=== PATIENT | female | born 1955 | race Asian ===

== ENCOUNTER 2017-05-24 15:38 | Outpatient (CLI) | payer OTHER ==
--- NOTE | 2017-05-27 15:21 | Mammography Report ---
DIGITAL SCREENING MAMMOGRAM: 05/24/2017 CLINICAL INDICATION: A 62-year-old, for screening. COMPARISON: 12/2015, 02/2014, 01/2013, 11/2011, 10/2010, 10/2009. TECHNIQUE: Routine CC and MLO projections were obtained of the breasts. Bilateral laterally exaggera moody craniocaudal views. FINDINGS: Parenchymal tissue within both breasts is heterogeneously dense, which may lower the sensi tivity of mammography; however, there are no dominant masses, suspicious microcalcifications, or seco ndary signs of malignancy. In comparison to the previous studies, there are no significant changes. ASSESSMENT: NO MAMMOGRAPHIC EVIDENCE OF MALIGNANCY. NO SIGNIFICANT INTERVAL CHANGES. RECOMMENDATION: Screening mammography is recommended annually. BIRADS category 1 - negative. STANDARD QUALIFYING STATEMENTS 1. This examination was reviewed with the aid of Computed-Aided Detection (CAD). 2. A negative or benign imaging report should not delay biopsy if clinically suspicious findings are present. Consider surgical consultation if warranted. More than 5% of cancers are not identified by i maging. 3. Dense breasts may obscure an underlying neoplasm. JOB #: [id number] EXT JOB #:[id number]
== END 2017-05-24 15:39 | disposition home or self-care (01) ==
LOC: DI 15:38
PROVIDERS: ATTEND Family Medicine
DX: Z12.31 Encounter for screening mammogram for malignant neoplasm of breast (principal)
CPT/HCPCS: 77067

== ENCOUNTER 2017-06-03 14:30 | Outpatient (CLI) | payer OTHER | END 2017-06-03 14:31 | disposition home or self-care (01) | LOC: LAB.R 14:30 | PROVIDERS: ATTEND Family Medicine | DX: N39.0 Urinary tract infection, site not specified (principal) | CPT/HCPCS: 87086 ==

== ENCOUNTER 2017-10-09 21:45 | Emergency (ER) | payer OTHER ==
[2017-10-09 21:59] VITALS: BP 142/86
[2017-10-09] MEDS ORDERED: IBUPROFEN 600 MG TABLET PO STA (22:13)
--- NOTE | 2017-10-09 22:19 | ED Physician Documentation ---
PD HPI UPPER EXT INJURY - Stated complaint Stated Complaint: RT WRIST PX - Chief complaint Chief Complaint: Ext Problem - History obtained from History obtained from: Patient - History of Present Illness Location: Other (She was at work tonight and was putting a liner on a garbage can it was quite tight and she bends her wrist. 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 : None HEENT: None Psych: None Musculoskeletal: None Derm: None - Past Surgical History Past Surgical History: No - Present Medications Home Medications: Ambulatory Orders Medication Instructions Recorded Confirmed Ibuprofen [Motrin] 800 mg PO Q8H PRN #30 tablet 10/09/17 - Allergies Allergies/Adverse Reactions: Allergies Allergy/AdvReac Type Severity Reaction Status Date / Time No Known Drug Allergies Allergy Verified 10/09/17 22:12 - Social History Does the pt smoke?: No Smoking Status: Never smoker Does the pt drink ETOH?: No Does the pt have substance abuse?: No - Immunizations Immunizations are current?: Yes - POLST Patient has POLST: No PD ED PE NORMAL - Vitals Vital signs reviewed: Yes - General General: Alert and oriented X 3, No acute distress - Extremities Extremities: Other (Right wrist is nontender with full range of motion, but she does have pain with both extension and ulnar deviation.) - Neuro Neuro: Alert and oriented X 3, Normal speech Results - Vitals Vitals: Vital Signs - 24 hr 10/09/17 21:53 Temperature 36.8 C Heart Rate 65 Respiratory 20 Rate Blood Pressure 142/86 H O2 Saturation 98 Oxygen O2 Source Room air Departure - Departure Disposition: Home, Self Care Clinical Impression: Sprain of wrist, right Qualifiers: Encounter type: initial encounter Qualified Code(s): S63.501A - Unspecified sprain of right wrist, initial encounter Condition: Good Record reviewed to determine appropriate education?: Yes Instructions: ED Sprain Wrist Prescriptions: Ibuprofen [Motrin] 800 mg PO Q8H PRN #30 tablet PRN Reason: PAIN &/OR FEVER Comments: Recheck with your doctor in 1 week. Forms: Activity restrictions
--- NOTE | 2017-10-09 23:24 | ED Physician Documentation ---
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 : None HEENT: None Psych: None Musculoskeletal: None Derm: None - Past Surgical History Past Surgical History: No - Present Medications Home Medications: Ambulatory Orders Medication Instructions Recorded Confirmed Ibuprofen [Motrin] 800 mg PO Q8H PRN #30 tablet 10/09/17 - Allergies Allergies/Adverse Reactions: Allergies Allergy/AdvReac Type Severity Reaction Status Date / Time No Known Drug Allergies Allergy Verified 10/09/17 22:12 - Social History Does the pt smoke?: No Smoking Status: Never smoker Does the pt drink ETOH?: No Does the pt have substance abuse?: No - Immunizations Immunizations are current?: Yes - POLST Patient has POLST: No Results - Vitals Vitals: Vital Signs - 24 hr 10/09/17 21:53 Temperature 36.8 C Heart Rate 65 Respiratory 20 Rate Blood Pressure 142/86 H O2 Saturation 98 Oxygen O2 Source Room air Departure - Departure Disposition: 01 Home, Self Care Clinical Impression: Sprain of wrist, right Qualifiers: Encounter type: initial encounter Qualified Code(s): S63.501A - Unspecified sprain of right wrist, initial encounter Condition: Good Instructions: ED Sprain Wrist Prescriptions: Ibuprofen [Motrin] 800 mg PO Q8H PRN #30 tablet PRN Reason: PAIN &/OR FEVER Comments: Recheck with your doctor in 1 week. Forms: Activity restrictions Discharge Date/Time: 10/09/17 22:31
== END 2017-10-09 22:31 | disposition home or self-care (01) ==
LOC: ED 21:45
DX: S63.501A Unspecified sprain of right wrist, initial encounter (principal); X50.1XXA Overexertion from prolonged static or awkward postures, initial encounter; Y93.E9 Activity, other interior property and clothing maintenance; Y92.89 Other specified places as the place of occurrence of the external cause; Y99.0 Civilian activity done for income or pay; I10 Essential (primary) hypertension; K21.9 Gastro-esophageal reflux disease without esophagitis
CPT/HCPCS: 99283; A9270

== ENCOUNTER 2018-06-21 13:50 | Emergency (ER) | payer OTHER ==
[2018-06-21 13:56] VITALS: BP 162/97
[2018-06-21] MEDS ORDERED: IBUPROFEN 600 MG TABLET PO STA (14:04)
--- NOTE | 2018-06-21 14:07 | ED Physician Documentation ---
PD HPI UPPER EXT INJURY - Stated complaint Stated Complaint: RT ARM INJ - Chief complaint Chief Complaint: Ext Problem - History obtained from History obtained from: Patient - History of Present Illness Location: Right (She has had problems with the left shoulder before, but never the right. Last night she was picking up a bag with a salmon in it at home. And she felt a pull in the right shoulder and has persistent pain that is only bad especially if she moves the arm. Rest it is not too bad. 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 : None HEENT: None Psych: None Musculoskeletal: None Derm: None - Past Surgical History Past Surgical History: No - Present Medications Home Medications: Ambulatory Orders Medication Instructions Recorded Confirmed Ibuprofen [Motrin] 800 mg PO Q8H PRN #30 tablet 10/09/17 Ibuprofen 600 mg PO Q8HR PRN #15 tablet 06/21/18 - Allergies Allergies/Adverse Reactions: Allergies Allergy/AdvReac Type Severity Reaction Status Date / Time No Known Drug Allergies Allergy Verified 06/21/18 13:56 - Social History Does the pt smoke?: No Smoking Status: Never smoker Does the pt drink ETOH?: No Does the pt have substance abuse?: No - Immunizations Immunizations are current?: Yes - POLST Patient has POLST: No PD ED PE NORMAL - Vitals Vital signs reviewed: Yes - General General: Alert and oriented X 3, No acute distress - Extremities Extremities: Other (Right shoulder is nontender, she has decent range of motion with abduction and abduction as well as internal and external rotation. Flexion of the shoulder hurts her though. There is no deformity. The clavicle and upper shoulder are nontender.) Results - Vitals Vitals: Vital Signs - 24 hr 06/21/18 13:53 Temperature 36.0 C L Heart Rate 73 Respiratory 16 Rate Blood Pressure 162/97 H O2 Saturation 100 Oxygen O2 Source Room air PD MEDICAL DECISION MAKING - ED course ED course: Seems like a simple shoulder strain, no evidence of rotator cuff pathology or bony pathology on exam and I do not think x-rays are necessary at this juncture. She is given a Note for a few days off of work and anti- inflammatories. - Sepsis Event Vital Signs: Vital Signs - 24 hr 06/21/18 13:53 Temperature 36.0 C L Heart Rate 73 Respiratory 16 Rate Blood Pressure 162/97 H O2 Saturation 100 Oxygen O2 Source Room air Departure - Departure Disposition: Home, Self Care Clinical Impression: Right shoulder strain Qualifiers: Encounter type: initial encounter Qualified Code(s): S46.911A - Strain of unspecified muscle, fascia and tendon at shoulder and upper arm level, right arm , initial encounter Condition: Good Record reviewed to determine appropriate education?: Yes Instructions: ED Sprain Shoulder Prescriptions: Ibuprofen 600 mg PO Q8HR PRN #15 tablet PRN Reason: Pain Comments: Your blood pressure was elevated today on check into the emergency department. This does not mean that you have hypertension, it is a common phenomenon to come to the emergency department and have elevated blood pressure. I recommend that you see your primary care physician within the week to have it rechecked when you are feeling better. Forms: Activity restrictions
== END 2018-06-21 14:30 | disposition home or self-care (01) ==
LOC: ED 13:50
DX: I10 Essential (primary) hypertension (principal); S46.911A Strain of unspecified muscle, fascia and tendon at shoulder and upper arm level, right arm, initial encounter; X50.0XXA Overexertion from strenuous movement or load, initial encounter; X50.9XXA Other and unspecified overexertion or strenuous movements or postures, initial encounter; Y93.89 Activity, other specified; Y92.009 Unspecified place in unspecified non-institutional (private) residence as the place of occurrence of the external cause
CPT/HCPCS: 99282; 99283; A9270

== ENCOUNTER 2018-07-25 14:12 | Outpatient (CLI) | payer OTHER ==
--- NOTE | 2018-07-28 09:04 | Mammography Report ---
Reason: SCREENING MAMMO Procedure Date: 07/25/2018 Accession Number: [id number] / [id number] Procedure: NELLIE - Screening Mammo w/Daniel CPT Code: FULL RESULT: EXAM: Screening Mammo w/Daniel DATE: 07/25/2018 2:39 PM CLINICAL HISTORY: 63-year-old female for screening mammogram. TECHNIQUE: Bilateral CC and MLO views were obtained. COMPARISON: 05/24/2017, 01/06/2016, 02/26/2014, 01/28/2013. FINDINGS: The breasts demonstrate heterogeneously dense fibroglandular parenchyma bilaterally. No suspicious masses, clustered microcalcifications, or regions of architectural distortion are identified. IMPRESSION: Negative examination RECOMMENDATION: Routine annual screening unless otherwise clinically indicated. BIRADS CATEGORY 1: Negative STANDARD QUALIFYING STATEMENTS: 1. This examination was not reviewed with the aid of Computer-Aided Detection (CAD). 2. A negative or benign imaging report should not delay biopsy if clinically suspicious findings are present. Consider surgical consultation if warrented. More than 5% of cancers are not identified by imaging. 3. Dense breasts may obscure an underlying neoplasm. 4. This examination was reviewed with the aid of 3D breast imaging (tomosynthesis).
== END 2018-07-25 14:13 | disposition home or self-care (01) ==
LOC: DI 14:12
DX: Z12.31 Encounter for screening mammogram for malignant neoplasm of breast (principal)
CPT/HCPCS: 77063; 77067

== ENCOUNTER 2018-08-01 08:00 | Outpatient (CLI) | payer OTHER | END 2018-08-01 08:01 | disposition home or self-care (01) | LOC: LAB.R 08:00 | PROVIDERS: ATTEND Family Medicine | DX: R30.0 Dysuria (principal); R50.9 Fever, unspecified | CPT/HCPCS: 87086; 87181; 87275; 87276 ==

== ENCOUNTER 2018-08-21 15:00 | Outpatient (CLI) | payer OTHER ==
[2018-08-23 11:32] LABS: HSV 2 IGG TYPE SPECIFIC AB <0.90 index
== END 2018-08-21 15:01 | disposition home or self-care (01) ==
LOC: LAB 15:00
PROVIDERS: ATTEND Obstetrics & Gynecology
DX: Z11.3 Encounter for screening for infections with a predominantly sexual mode of transmission (principal)
CPT/HCPCS: 36415; 81599; 86695; 86696

== ENCOUNTER 2019-11-12 08:00 | Outpatient (CLI) | payer BC, OTHER | END 2019-11-12 23:59 | disposition home or self-care (01) | LOC: LAB.R 08:00 | PROVIDERS: ATTEND Family Medicine | DX: R30.0 Dysuria (principal) | CPT/HCPCS: 87086 ==

== ENCOUNTER 2019-11-28 17:38 | Emergency (ER) | payer BC ==
[2019-11-28 17:48] VITALS: BP 160/94
[2019-11-28] MEDS ORDERED: IBUPROFEN 800 MG TABLET PO STA (17:55)
--- NOTE | 2019-11-28 17:56 | ED Physician Documentation ---
PD HPI CHEST PAIN - Stated complaint Stated Complaint: MUSCULAR PX - Chief complaint Chief Complaint: Back Pain - History obtained from History obtained from: Patient - History of Present Illness Timing - onset: Other (Healthy 64-year-old woman has had left upper chest pain ever since someone cracked her back a week ago. It is worse when she bends over, coughs, or takes a deep breath or laughs. It is not present at rest. 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 HEENT: None Psych: None Musculoskeletal: None Derm: None - Past Surgical History Past Surgical History: No - Present Medications Home Medications: Ambulatory Orders Medication Instructions Recorded Confirmed Ibuprofen [Motrin] 800 mg PO Q8H PRN #30 tablet 10/09/17 Ibuprofen 600 mg PO Q8HR PRN #15 tablet 06/21/18 Cyclobenzaprine [Flexeril] 10 mg PO TID PRN #14 tablet 11/28/19 - Allergies Allergies/Adverse Reactions: Allergies Allergy/AdvReac Type Severity Reaction Status Date / Time No Known Drug Allergies Allergy Verified 06/21/18 13:56 - Social History Does the pt smoke?: No Smoking Status: Never smoker Does the pt drink ETOH?: No Does the pt have substance abuse?: No - Immunizations Immunizations are current?: Yes - POLST Patient has POLST: No PD ED PE NORMAL - Vitals Vital signs reviewed: Yes - General General: Alert and oriented X 3, No acute distress - HEENT HEENT: PERRL, EOMI - Neck Neck: Supple, no meningeal sign, No bony TTP - Cardiac Cardiac: RRR, No murmur - Respiratory Respiratory: No respiratory distress, Other (Tender left upper chest wall, no shingles rash.) - Abdomen Abdomen: Non tender - Extremities Extremities: No edema, No calf tenderness / cord - Neuro Neuro: Alert and oriented X 3, Normal speech Results - Vitals Vitals: Vital Signs - 24 hr 11/28/19 17:42 Temperature 36 C L Heart Rate 70 Respiratory 18 Rate Blood Pressure 160/94 H O2 Saturation 96 Oxygen O2 Source Room air - EKG (time done) 4521 Rate: Rate (enter#) (64) Rhythm: NSR Roff: Normal Intervals: Normal OK QRS: Normal Ischemia: Normal ST segments Computer interpretation: Agree with computer - Rads (name of study) 2v chest Radiology: EMP read contemporaneously (normal) PD MEDICAL DECISION MAKING - ED course ED course: 64-year-old woman with reproducible traumatic muscular pain of the left upper chest. Given her age although the history was very atypical and EKG was done without any ischemic findings and a chest x-ray was normal. Departure - Departure Disposition: 01 Home, Self Care Clinical Impression: Chest wall muscle strain Qualifiers: Encounter type: initial encounter Qualified Code(s): S29.011A - Strain of muscle and tendon of front wall of thorax, initial encounter Condition: Good Record reviewed to determine appropriate education?: Yes Instructions: ED Contusion Chest Wall Prescriptions: Cyclobenzaprine [Flexeril] 10 mg PO TID PRN #14 tablet PRN Reason: Spasms Comments: You can continue ibuprofen as needed for pain. Return for new or worsening symptoms. Follow-up with your doctor within the week. Your blood pressure was elevated today on check into the emergency department. This does not mean that you have hypertension, it is a common phenomenon to come to the emergency department and have elevated blood pressure. I recommend that you see your primary care physician within the week to have it rechecked when you are feeling better.
--- NOTE | 2019-11-28 18:56 | XRAY Report ---
Reason: chest pain Procedure Date: 11/28/2019 Accession Number: [id number] / [id number] Procedure: XR - Chest 2 View X-Ray CPT Code: 29791 Final Report FULL RESULT: EXAM: CHEST RADIOGRAPHY EXAM DATE: 11/28/2019 06:41 PM. CLINICAL HISTORY: Chest pain. COMPARISON: CHEST 1 VIEW 01/13/2015 2:18 PM. TECHNIQUE: 2 views. FINDINGS: Lungs/Pleura: No focal opacities evident. No pleural effusion. No pneumothorax. Normal volumes. Mediastinum: Heart and mediastinal contours are unremarkable. Other: None. IMPRESSION: Normal 2-view chest radiography. RADIA
== END 2019-11-28 19:12 | disposition home or self-care (01) ==
LOC: ED 17:38
DX: S29.011A Strain of muscle and tendon of front wall of thorax, initial encounter (principal); X58.XXXA Exposure to other specified factors, initial encounter; Y93.89 Activity, other specified; I10 Essential (primary) hypertension
CPT/HCPCS: 71046; 93005; 99283; 99284; A9270

== ENCOUNTER 2020-12-22 08:00 | Outpatient (CLI) | payer OTHER ==
[2020-12-22 17:56] LABS: BASOPHILS # (AUTO) 0.1 10^3/uL (0.0-0.1); EOSINOPHILS # (AUTO) 0.2 10^3/uL (0.0-0.7); EOSINOPHILS % (AUTO) 3.6 %; HGB - HEMOGLOBIN 12.2 g/dL (12.0-16.0); LYMPHOCYTES # (AUTO) 2.4 10^3/uL (1.5-3.5); LYMPHOCYTES % (AUTO) 46.2 %; MEAN CORPUSCULAR HEMOGLOBIN 31.4 pg (27.0-31.0); MEAN CORPUSCULAR HGB CONC 32.1 g/dL (32.0-36.0); MEAN CORPUSCULAR VOLUME 97.9 fL (81.0-99.0); MEAN PLATELET VOLUME 9.9 fL (7.9-10.8); MONOCYTES # (AUTO) 0.4 10^3/uL (0.0-1.0); MONOCYTES % (AUTO) 8.4 %; NEUTROPHILS # (AUTO) 2.1 10^3/uL (1.5-6.6); NEUTROPHILS % (AUTO) 40.6 %; PLT - PLATELET COUNT 275 10^3/uL (130-450); RED BLOOD COUNT 3.88 10^6/uL (4.20-5.40); WHITE BLOOD COUNT 5.2 x10^3/uL (4.8-10.8)
[2020-12-22 19:05] LABS: ALBUMIN 4.3 g/dL (3.2-5.5); ALBUMIN/GLOBULIN RATIO 1.3 (1.0-2.2); BILIRUBIN,TOTAL 0.6 mg/dL (0.2-1.0); CALCIUM 9.1 mg/dL (8.5-10.3); CREATININE 0.7 mg/dL (0.4-1.0); TOTAL PROTEIN 7.7 g/dL (6.7-8.2)
== END 2020-12-22 23:59 | disposition home or self-care (01) ==
LOC: LAB.WCP 08:00
PROVIDERS: ATTEND Family Medicine
DX: R42 Dizziness and giddiness (principal)
CPT/HCPCS: 36415; 80053; 85025

== ENCOUNTER 2021-01-23 15:45 | Outpatient (CLI) | payer OTHER ==
--- NOTE | 2021-01-24 08:11 | Mammography Report ---
BILATERAL DIGITAL SCREENING MAMMOGRAM 3D/2D: 01/23/2021 CLINICAL: Routine screening. Comparison is made to exams dated: 07/25/2018 mammogram, 05/24/2017 mammogram, 01/06/2016 mammogram, 02/26 mammogram, 01/28/2013 mammogram, and 12/18/2011 mammogram - [facility]. The ti ssue of both breasts is heterogeneously dense. This may lower the sensitivity of mammography. No significant masses, calcifications, or other findings are seen in either breast. There has been no significant interval change. IMPRESSION: NEGATIVE There is no mammographic evidence of malignancy. A 1 year screening mammogram is recommended. This exam was interpreted at Station ID: [id number]. NOTE: For mammograms, a report in lay terms will be sent to the patient. Approximately 15% of breast malignancies will not be visualized mammographically. In the management of a palpable breast mass, a negative mammogram must not discourage biopsy of a clinically suspicious lesion. Electronically Signed By: Joe Sawant M.D. at/sue:01/23/2021 16:35:25 ACR BI-RADS Category 1: Negative 3341F PARENCHYMAL PATTERN: (D) - The breast(s) demonstrate(s) heterogeneously dense fibroglandular huma melvin. BI-RADS CATEGORY: (1) - 1 RECOMMENDATION: (ANNUAL) - Recommend routine annual screening mammography. [id number] 1 year screening LATERALITY: (B)
== END 2021-01-23 15:46 | disposition home or self-care (01) ==
LOC: DI.N 15:45
PROVIDERS: ATTEND Obstetrics & Gynecology
DX: Z12.31 Encounter for screening mammogram for malignant neoplasm of breast (principal)

== ENCOUNTER 2021-06-29 11:00 | Outpatient (CLI) | payer OTHER | END 2021-06-29 23:59 | disposition home or self-care (01) | LOC: LAB.N 11:00 | PROVIDERS: ATTEND Nurse Practitioner | DX: R30.0 Dysuria (principal) | CPT/HCPCS: 87086 ==

== ENCOUNTER 2022-05-02 08:33 | Outpatient (CLI) | payer OTHER ==
--- NOTE | 2022-05-03 12:28 | Mammography Report ---
BILATERAL DIGITAL SCREENING MAMMOGRAM 3D/2D: 05/02/2022 CLINICAL: Routine screening. Comparison is made to exams dated: 01/23/2021 mammogram, 07/25/2018 mammogram, 05/24/2017 mammogram, 01/05 mammogram, 02/26/2014 mammogram, and 01/28/2013 mammogram - [facility]. The tis ciaran of both breasts is heterogeneously dense. This may lower the sensitivity of mammography. No significant masses, calcifications, or other findings are seen in either breast. There has been no significant interval change. IMPRESSION: NEGATIVE There is no mammographic evidence of malignancy. A 1 year screening mammogram is recommended. Based on the Tyrer Cuzick model (a risk assessment model) the patients lifetime risk is 7.7% and her 10 year risk is 3.7%. According to the ACR, ACS, and NCCN guidelines, an annual breast MRI exam saul g with mammogram is recommended if the patients lifetime risk is 20% or greater. This exam was interpreted at Station ID: [id number]. NOTE: For mammograms, a report in lay terms will be sent to the patient. Approximately 15% of breast malignancies will not be visualized mammographically. In the management of a palpable breast mass, a negative mammogram must not discourage biopsy of a clinically suspicious lesion. Electronically Signed By: Joe dove/sue:05/02/2022 10:47:48 ACR BI-RADS Category 1: Negative 3341F PARENCHYMAL PATTERN: (D) - The breast(s) demonstrate(s) heterogeneously dense fibroglandular huma melvin. BI-RADS CATEGORY: (1) - 1 RECOMMENDATION: (ANNUAL) - Recommend routine annual screening mammography. [id number] 1 year screening LATERALITY: (B)
== END 2022-05-02 08:34 | disposition home or self-care (01) ==
LOC: DI.N 08:33
PROVIDERS: ATTEND Obstetrics & Gynecology
DX: Z12.31 Encounter for screening mammogram for malignant neoplasm of breast (principal)

== ENCOUNTER 2022-08-13 08:00 | Outpatient (CLI) | payer MEDICARE | END 2022-08-13 23:59 | disposition home or self-care (01) | LOC: LAB.N 08:00 | PROVIDERS: ATTEND Registered Nurse | DX: R30.0 Dysuria (principal) | CPT/HCPCS: 87086; 87181 ==

== ENCOUNTER 2022-08-22 07:31 | Outpatient (CLI) | payer MEDICARE ==
--- NOTE | 2022-08-22 09:57 | DEXA Report ---
PROCEDURE: Dexa Spine and/or Hip INDICATIONS: OSTEOPOROSIS TECHNIQUE: Dual energy x-ray absorptiometry (DXA) was performed on a [employer] System. Regions measur ed are the AP Spine, femoral neck, and if needed forearm. COMPARISON: 04/25/2016 FINDINGS: Lumbar Spine: Bone Mineral Density 0.81 g/cm/cm,T score -3.1, previously -2.6 Left Hip: Bone Mineral Density 0.74 g/cm/cm,T score -2.1, previously -1.7 Left Femoral Neck: Bone Mineral Density 0.70 g/cm/cm, T score -2.4, previously -2 (T score greater or equal to -1.0: NORMAL) (T score from -1.1 to -2.4: OSTEOPENIA) (T score less than or equal to -2.5 to: OSTEOPOROSIS) Impression: Osteoporosis of the lumbar spine. Osteopenia of the left hip and femoral neck. T-scores are slightly worsened compared to 2016. Patients with diagnosis of osteoporosis or osteopenia should have regular bone mineral density assess ment. For those eligible for Medicare, routine testing is allowed once every 2 years. Testing frequ ency can be increased for patients who have rapidly progressing disease or for those who are receivin g medical therapy to restore bone mass. Reviewed by: Danilo Mckeon MD on 08/22/2022 9:56 AM PDT Approved by: Danilo Mckeon MD on 08/22/2022 9:56 AM PDT Station ID: [id number]
== END 2022-08-22 07:32 | disposition home or self-care (01) ==
LOC: DI 07:31
PROVIDERS: ATTEND Nurse Practitioner
DX: M81.0 Age-related osteoporosis without current pathological fracture (principal)

== ENCOUNTER 2023-05-27 16:27 | Outpatient (CLI) | payer MEDICARE ==
--- NOTE | 2023-05-28 20:18 | XRAY Report ---
PROCEDURE: Chest 2 View X-Ray INDICATIONS: COUGH, UNSPECIFIED TECHNIQUE: 2 views of the chest were acquired. COMPARISON: 11/28/2019. FINDINGS: Surgical changes and devices: None. Lungs and pleura: No pleural effusions or pneumothorax. Lungs are clear. Mediastinum: Mediastinal contours appear normal. Heart size is normal. Bones and chest wall: No suspicious bony lesions. Overlying soft tissues appear unremarkable. IMPRESSION: No acute cardiopulmonary process. Reviewed by: Phil Artis MD on 05/28/2023 8:16 PM PDT Approved by: Phil Artis MD on 05/28/2023 8:16 PM PDT Station ID: [id number]
== END 2023-05-27 16:28 | disposition home or self-care (01) ==
LOC: DI 16:27
PROVIDERS: ATTEND Nurse Practitioner
DX: R05.9 Cough, unspecified (principal)

== ENCOUNTER 2023-07-30 15:20 | Outpatient (CLI) | payer MEDICARE ==
--- NOTE | 2023-07-31 10:43 | Mammography Report ---
BILATERAL DIGITAL SCREENING MAMMOGRAM 3D/2D: 07/30/2023 CLINICAL: Routine screening. Comparison is made to exams dated: 05/02/2022 mammogram, 01/23/2021 mammogram, 07/25/2018 mammogram, 05/24 mammogram, 01/06/2016 mammogram, and 02/26/2014 mammogram - [facility]. There are scattered areas of fibroglandular density in both breasts (category b / 25%-50% glandular t issue). No significant masses, calcifications, or other findings are seen in either breast. There has been no significant interval change. IMPRESSION: NEGATIVE There is no mammographic evidence of malignancy. A 1 year screening mammogram is recommended. Based on the Tyrer Cuzick model (a risk assessment model) the patients lifetime risk is 4.9% and her 10 year risk is 2.4%. According to the ACR, ACS, and NCCN guidelines, an annual breast MRI exam saul g with mammogram is recommended if the patients lifetime risk is 20% or greater. This exam was interpreted at Station ID: [id number]. NOTE: For mammograms, a report in lay terms will be sent to the patient. Approximately 15% of breast malignancies will not be visualized mammographically. In the management of a palpable breast mass, a negative mammogram must not discourage biopsy of a clinically suspicious lesion. Electronically Signed By: Joe dove/sue:07/30/2023 22:21:53 letter sent: No_Letter ACR BI-RADS Category 1: Negative 3341F PARENCHYMAL PATTERN: (A) - The breast(s) demonstrate(s) scattered fibroglandular densities. BI-RADS CATEGORY: (1) - 1 Mammogram [id number] 1 year screening LATERALITY: (B)
== END 2023-07-30 15:21 | disposition home or self-care (01) ==
LOC: DI.N 15:20
DX: Z12.31 Encounter for screening mammogram for malignant neoplasm of breast (principal); R92.323 Mammographic fibroglandular density, bilateral breasts

== ENCOUNTER 2023-09-24 16:00 | Outpatient (CLI) | payer MEDICARE | END 2023-09-24 16:15 | disposition home or self-care (01) | LOC: LAB.N 16:00 | PROVIDERS: ATTEND Physician Assistant Medical | DX: R42 Dizziness and giddiness (principal); R51.9 Headache, unspecified | CPT/HCPCS: 36415; 80053; 84443; 85025; 85651; 86140 ==

== ENCOUNTER 2023-12-19 12:24 | Outpatient (CLI) | payer MEDICARE ==
--- NOTE | 2023-12-19 18:00 | DEXA Report ---
PROCEDURE: Dexa Spine and/or Hip INDICATIONS: OSTEOPOROSIS TECHNIQUE: Dual energy x-ray absorptiometry (DXA) was performed on a [employer] System. Regions measur ed are the AP Spine, femoral neck, and if needed forearm. COMPARISON: DEXA on August 22, 2022 FINDINGS: Lumbar Spine: Bone Mineral Density: 0.783 g/cm/cm,T score: -3.3. Since the most recent prior study, there has been a statistically significant decrease in bone mineral density by 9.7 percent. Left Femoral Neck: Bone Mineral Density: 0.745 g/cm/cm, T score: -2.1. Left Hip: Bone Mineral Density: 0.789 g/cm/cm,T score: -1.7. There has been no statistically significant change in bone mineral density since the prior study. (T score greater or equal to -1.0: NORMAL) (T score from -1.1 to -2.4: OSTEOPENIA) (T score less than or equal to -2.5 to: OSTEOPOROSIS) Impression: By WHO criteria, this patient has osteoporosis. Interval statistical decrease in bone mineral density of the lumbar spine. No statistical interval ch sukhdeep in bone mineral density of the hip. Patients with diagnosis of osteoporosis or osteopenia should have regular bone mineral density assess ment. For those eligible for Medicare, routine testing is allowed once every 2 years. Testing frequ ency can be increased for patients who have rapidly progressing disease or for those who are receivin g medical therapy to restore bone mass. Reviewed by: Robbie Velasquez MD on 12/19/2023 5:58 PM PST Approved by: Robbie Velasquez MD on 12/19/2023 5:58 PM PST Station ID: [id number]
== END 2023-12-19 12:25 | disposition home or self-care (01) ==
LOC: DI 12:24
PROVIDERS: ATTEND Nurse Practitioner
DX: M81.0 Age-related osteoporosis without current pathological fracture (principal); Z78.0 Asymptomatic menopausal state

== ENCOUNTER 2024-01-08 12:18 | Outpatient (CLI) | payer MEDICARE ==
--- NOTE | 2024-01-08 14:15 | XRAY Report ---
PROCEDURE: Hip w/Pelvis 2-3V RT INDICATIONS: PAIN IN RIGHT HIP TECHNIQUE: Single view of the hip and single frog-leg view of the right hip is provided. COMPARISON: None. FINDINGS: Bones: No fractures or dislocations. No suspicious bony lesions. Soft tissues: No suspicious soft tissue calcifications or masses. IMPRESSION: No acute bony abnormality. Reviewed by: Jun Juarez MD on 01/08/2024 2:14 PM PDT Approved by: Jun Juarez MD on 01/08/2024 2:14 PM PDT Station ID: [id number]
== END 2024-01-08 12:19 | disposition home or self-care (01) ==
LOC: DI.N 12:18
PROVIDERS: ATTEND Nurse Practitioner
DX: M25.551 Pain in right hip (principal)

== ENCOUNTER 2024-04-15 08:00 | Outpatient (CLI) | payer MEDICARE | END 2024-04-15 23:59 | disposition home or self-care (01) | LOC: LAB.WCP 08:00 | PROVIDERS: ATTEND Nurse Practitioner | DX: J02.9 Acute pharyngitis, unspecified (principal) | CPT/HCPCS: 87070 ==

== ENCOUNTER 2024-06-17 08:00 | Outpatient (CLI) | payer MEDICARE | END 2024-06-17 23:59 | disposition home or self-care (01) | LOC: LAB.N 08:00 | PROVIDERS: ATTEND Physician Assistant Medical | DX: N39.0 Urinary tract infection, site not specified (principal) | CPT/HCPCS: 87086 ==